=== PATIENT | female | born 1965 | race Caucasian/White ===

== ENCOUNTER 2019-11-12 13:23 | Outpatient (CLI) | payer OTHER ==
--- NOTE | 2019-11-12 13:40 | RAD ---
EXAM: Chest PA and lateral: HISTORY: Pneumothorax COMPARISON: 11/10/2019 FINDINGS: Left-sided chest tube along the lateral left chest wall. There is a left pneumothorax which is increa sed from yesterday, now estimated in the 40-50% range. Right lung remains clear. Heart and mediastinum appear unremarkable. Osseous structures are unremarkable. IMPRESSION: Enlarging left pneumothorax. Dr. Izquierdo notified.
== END 2019-11-12 13:24 | disposition home or self-care (01) ==
LOC: RAD 13:23
PROVIDERS: ATTEND Thoracic Surgery (Cardiothoracic Vascular Surgery)
DX: J93.83 Other pneumothorax (principal)
CPT/HCPCS: 71046

== ENCOUNTER 2019-11-13 09:25 | Inpatient (IN) | payer SELFPAY ==
[2019-11-13] MEDS ORDERED: Lidocaine 2% Jelly 5 ML TUBE ONE (10:14)
[2019-11-13] MEDS ORDERED: Fentanyl 250 MCG/5 ML VIAL ONE (10:14)
[2019-11-13] MEDS ORDERED: Midazolam HCl 2 mg/2 ml Vial ONE ×2 (10:14→10:29)
[2019-11-13] MEDS ORDERED: Fentanyl 100 MCG/2 ML VIAL ONE ×2 (10:29→13:26)
[2019-11-13] MEDS ORDERED: Dexamethasone 4 mg/ml Vial ONE (10:29)
[2019-11-13 10:57] LABS: Hemoglobin 14.2 g/dL (12.0-16.0); Mean Corpuscular HGB CONC 33.4 g/dL (32.0-36.0); Mean Corpuscular Hemoglobin 32.8 pg (27.0-31.0); Mean Corpuscular Volume 98.1 fL (78.0-98.0); Mean Platelet Volume 6.8 fL (7.4-10.4); Platelet Count 299 thou/uL (130-400); Red Blood Cell (RBC) Count 4.32 mill/uL (4.20-5.40); White Blood Cell (WBC) Count 6.3 thou/uL (4.8-10.8)
[2019-11-13 11:05] LABS: Anion Gap 13 mmol/L (10-20); BUN (Urea Nitrogen) 15 mg/dL (9.8-20.1); Calc. Creatinine Clearance 122 mL/min (70-130); Calcium 9.1 mg/dL (7.8-10.44); Carbon Dioxide 25 mmol/L (22-29); Chloride 103 mmol/L (98-107); Estimated GFR-MDRD 82; Glucose 94 mg/dL (70-105); Potassium 4.4 mmol/L (3.5-5.1); Sodium 137 mmol/L (136-145)
[2019-11-13] MEDS ORDERED: Rocuronium Bromide 10 MG/ML (10ML VIAL) ONE (11:20)
[2019-11-13] MEDS ORDERED: Glycopyrrolate 0.2 MG/ML 5 ML SYRINGE ONE (11:20)
[2019-11-13] MEDS ORDERED: Dexamethasone 20 MG/5 ML VIAL ONE ×2 (11:20→11:21)
[2019-11-13] MEDS ORDERED: PROPOFOL 200 MG/20 ML VIAL ONE (11:20)
[2019-11-13] MEDS ORDERED: Ondansetron PF 4 MG/2 ML Vial ONE (11:20)
[2019-11-13] MEDS ORDERED: Ropivacaine 0.5% HCl/PF (150 MG/30 ML VIAL) ONE (11:21)
[2019-11-13] MEDS ORDERED: SUGAMMADEX SODIUM 200 MG/2 ML VIAL ONE (12:24)
[2019-11-13] MEDS ORDERED: Promethazine HCl 25 MG/ML VIAL IM PRN ×2 (12:57→14:14)
[2019-11-13] MEDS ORDERED: Ondansetron HCl/PF 4 MG/2 ML Vial IVP PRN (12:57)
[2019-11-13] MEDS ORDERED: HYDROmorphone 2 MG/ML VIAL SLOW IVP PRN (12:57)
[2019-11-13] MEDS ORDERED: Ketorolac Tromethamine 30 MG/ML VIAL IVP PRN (12:57)
[2019-11-13] MEDS ORDERED: Promethazine HCl 25 MG/ML VIAL SLOW IVP PRN (12:57)
[2019-11-13] MEDS ORDERED: Promethazine HCl 25 MG/ML VIAL ONE (13:05)
--- NOTE | 2019-11-13 13:08 | RAD ---
RADIOGRAPH CHEST 1 VIEW: DATE: 11/13/2019 TIME: 1:01 PM HISTORY: 54-year-old female follow-up pneumothorax COMPARISON: 11/12/2019 FINDINGS: The small caliber left pleural catheter has been removed. There is a new large caliber thoracostomy t ube entering from left lateral mid-lower rib cage, ascending with distal tip near lateral apex. The previously demonstrated pneumothorax is no longer visualized. There is a new finding of interstitial-alveolar infiltrates in the bilateral mid and lower lung zones , left greater than right. IMPRESSION: 1) interval resolution of the previously demonstrated pneumothorax upon replacement of the small bore left pleural catheter with a large bore left-sided chest tube. 2.) Interval development of new bilateral pulmonary densities which could represent pulmonary interst itial edema. Pneumonia is less likely. Follow-up is recommended.
--- NOTE | 2019-11-13 14:08 | OP ---
DATE OF PROCEDURE: 11/13/2019 PREOPERATIVE DIAGNOSIS: Left-sided pneumothorax after fall with continued air leak. POSTOPERATIVE DIAGNOSIS: Left-sided pneumothorax after fall with continued air leak. PROCEDURE PERFORMED: Left thoracoscopy with apical bleb resection and mechanical pleurodesis. ANESTHESIA: General endotracheal. ESTIMATED BLOOD LOSS: Minimal. DRAINS: 20-Syriac chest tube x1. SPECIMEN: Apical bleb. DESCRIPTION OF PROCEDURE: After consent was obtained, the patient was brought to the operating room, placed in supine position on the operating room table. Appropriate central lines and monitors were placed and general endotracheal anesthesia was induced. Flexible fiberoptic bronchoscopy was performed to confirm endotracheal tube positioning. The patient was placed in a right lateral decubitus position. Joints were appropriately padded and SCDs used. Left chest wall was prepped and draped in usual sterile fashion. Three separate port incisions were made. On inspection, there was a bleb at the apex, which was resected with a MAIKOL stapler. The remainder of the lung was inspected and there were no other blebs. There were no areas of air leak with inflation along. Chest wall was abraded with cautery scratch pad. The lung was reinflated and expanded and filled the chest cavity nicely. The ports were all removed and the 20-Syriac chest tube placed in the anterior port site. This was secured with silk suture. The wounds were then closed in layers and Dermabond applied to skin. The patient was awakened, extubated, and transferred to the recovery room in stable condition. Needle, sponge, and instrument counts were all reported as correct at the end of the procedure. Job ID: [id number]
[2019-11-13 14:11] VITALS: BMI 25.7
[2019-11-13] MEDS ORDERED: Ondansetron PF 4 MG/2 ML Vial IVP PRN (14:14)
[2019-11-13] MEDS ORDERED: Fentanyl 100 MCG/2 ML VIAL SLOW IVP PRN (14:14)
[2019-11-13] MEDS ORDERED: hydrALAZINE 20 MG/ML VIAL SLOW IVP PRN (14:14)
[2019-11-13] MEDS: Fentanyl 100 MCG/2 ML VIAL SLOW IVP PRN ×3 (14:53→22:56)
[2019-11-13] MEDS: Ketorolac Tromethamine 30 MG/ML VIAL ONE ×2 (14:53→14:58)
[2019-11-13] MEDS: Sodium Chloride 0.9% 1,000 ML IV SCH ×2 (14:58→20:11)
[2019-11-13] MEDS ORDERED: Ketorolac Tromethamine 30 MG/ML VIAL IVP SCH ×2 (15:00→18:00)
[2019-11-13] MEDS: traMADol HCl 50 MG TAB PO PRN (16:28)
[2019-11-13] MEDS: CEFAZOLIN 2 GM in Premix Bag 1 BAG IVPB SCH (17:11)
[2019-11-13] MEDS: Ketorolac Tromethamine 30 MG/ML VIAL IVP SCH (20:11)
[2019-11-14] MEDS: CEFAZOLIN 2 GM in Premix Bag 1 BAG IVPB SCH ×2 (02:12→10:28)
[2019-11-14] MEDS: Ketorolac Tromethamine 30 MG/ML VIAL IVP SCH ×3 (02:12→15:57)
[2019-11-14] MEDS: traMADol HCl 50 MG TAB PO PRN (02:12)
[2019-11-14] MEDS: Citalopram 20 MG TAB PO SCH (08:03)
[2019-11-14] MEDS: Bupropion 150 MG XL TAB PO SCH (08:03)
[2019-11-14] MEDS ORDERED: HYDROcodone/Acetaminophen 5/325 mg Tablet PO PRN (10:04)
[2019-11-14] MEDS: Sodium Chloride 0.9% 1,000 ML IV SCH ×3 (10:30→19:38)
--- NOTE | 2019-11-14 10:45 | RAD ---
EXAM: Single view of the chest HISTORY: Pleurodesis COMPARISON: 11/13/2019 FINDINGS: Single view of the chest shows a normal sized cardiomediastinal silhouette. There is a lef t-sided chest tube. No obvious pneumothorax is appreciated. Atelectasis is seen in the left lung base. There is no evidence of consolidation, mass, or pleural effusion. The bones are unremarkable. IMPRESSION: No pneumothorax visualized.
[2019-11-14] MEDS: HYDROcodone/Acetaminophen 5/325 mg Tablet PO PRN ×2 (12:59→19:28)
[2019-11-15] MEDS: HYDROcodone/Acetaminophen 5/325 mg Tablet PO PRN ×4 (02:07→15:00)
[2019-11-15] MEDS: Bupropion 150 MG XL TAB PO SCH (07:40)
[2019-11-15] MEDS: Citalopram 20 MG TAB PO SCH (07:41)
--- NOTE | 2019-11-15 07:54 | RAD ---
EXAM: Single view of the chest HISTORY: Status post pleurodesis in the left chest COMPARISON: 11/06/2019 FINDINGS: Single view of the chest shows a normal sized cardiomediastinal silhouette. There is a lef t-sided chest tube without evidence of pneumothorax. Atelectasis is seen in the left lung base. There is no evidence of consolidation, mass, or pleural effusion. The bones are unremarkable. IMPRESSION: No pneumothorax visualized.
[2019-11-15 11:11] VITALS: BP 113/67; TEMP 98.3
--- NOTE | 2019-11-16 09:32 | DIS ---
DATE OF ADMISSION: 11/13/2019 DATE OF DISCHARGE: 11/15/2019 PRINCIPAL DIAGNOSIS: Left pneumothorax. PROCEDURES PERFORMED: Left thoracoscopic apical bleb resection and mechanical pleurodesis, 11/13/2019. HISTORY OF PRESENT ILLNESS AND HOSPITAL COURSE: The patient is a 54-year-old smoker who presented to an outlying facility after a fall. She was not found to have any significant injuries beyond a left-sided pneumothorax. A small bore catheter with Heimlich valve was placed, but her pneumothorax expanded on a followup film. She was electively admitted for thoracoscopy. An apical bleb was identified. It was resected. No other blebs or areas of air leak were identified. Mechanical pleurodesis was performed and the chest was drained with a 20-Occitan chest tube. She had no air leak immediately postoperatively and the following morning still had no air leak. Her chest tube was placed to water seal and her lung remained inflated and there was no air leak. The following day, postoperative day 2, her chest tube was removed and she was discharged home to resume her home medications and she has been written a prescription for Barnard for pain control. Job ID: [id number]
== END 2019-11-15 15:13 | disposition home or self-care (01) | DRG 164 ==
LOC: SURG A 09:41
PROVIDERS: ADMIT Thoracic Surgery (Cardiothoracic Vascular Surgery); ATTEND Thoracic Surgery (Cardiothoracic Vascular Surgery)
PROC: 0BBG4ZZ Excision of Left Upper Lung Lobe, Percutaneous Endoscopic Approach (ICD-10-PCS; principal; 2019-11-13)
PROC: 0B5P4ZZ Destruction of Left Pleura, Percutaneous Endoscopic Approach (ICD-10-PCS; 2019-11-13)
PROC: 0W9B40Z Drainage of Left Pleural Cavity with Drainage Device, Percutaneous Endoscopic Approach (ICD-10-PCS; 2019-11-13)
DX: J93.83 Other pneumothorax (principal); J90 Pleural effusion, not elsewhere classified; J98.11 Atelectasis; J43.9 Emphysema, unspecified
CPT/HCPCS: 71045; 80048; 85027; 88307; J0690; J1100; J1885; J2250; J2405; J2550; J2704; J2795; J3010

== ENCOUNTER 2019-11-23 14:10 | Outpatient (CLI) | payer OTHER ==
--- NOTE | 2019-11-23 15:56 | RAD ---
PA AND LATERAL VIEWS CHEST: HISTORY: Left pneumothorax. FINDINGS: Comparison is made with the exam of 11/15/2019. There has been interval removal of the left-sided chest tube. No pneumothorax is seen. The heart si ze is normal. No lobar consolidation or pleural effusions are identified. IMPRESSION: No evidence of pneumothorax. POS: [facility]
== END 2019-11-23 14:11 | disposition home or self-care (01) ==
LOC: RAD 14:10
PROVIDERS: ATTEND Thoracic Surgery (Cardiothoracic Vascular Surgery)
DX: J93.9 Pneumothorax, unspecified (principal)
CPT/HCPCS: 71046

== ENCOUNTER 2020-05-17 09:52 | Outpatient (CLI) | payer OTHER ==
--- NOTE | 2020-05-17 11:08 | RAD ---
2 VIEWS CHEST: Date: 05/17/2020 PROVIDED CLINICAL HISTORY: Spontaneous pneumothorax. FINDINGS: Comparison with 11/23/2019. Cardiac and mediastinal silhouette is within normal limits. No focal consolidation, pleural fluid, or pneumothorax apparent. IMPRESSION: No evidence for an acute cardiopulmonary process. POS: [facility]
== END 2020-05-17 09:53 | disposition home or self-care (01) ==
LOC: RAD 09:52
PROVIDERS: ATTEND Thoracic Surgery (Cardiothoracic Vascular Surgery)
DX: J93.83 Other pneumothorax (principal)
CPT/HCPCS: 71046